=== PATIENT | female | born 1950 | race Caucasian/White ===

== ENCOUNTER 2016-11-24 10:53 | Observation (INO) | payer BC, OTHER ==
[2016-11-24 10:53] VITALS: BMI 32.1
--- NOTE | 2016-11-24 12:09 | RAD ---
HISTORY: CP COMPARISON: Images from chest x-ray performed 07/08/08 TECHNIQUE: Chest PA and lateral FINDINGS: LUNGS: No focal consolidation. Please note that chest x-ray has limited sensitivity for the detection of pulmonary masses. PLEURA: No significant pleural effusion identified. No definite pneumothorax . CARDIOVASCULAR: Heart size appears within normal limits. OSSEOUS STRUCTURES: Degenerative changes of the spine. VISUALIZED UPPER ABDOMEN: Elevation of the right hemidiaphragm. OTHER FINDINGS: None. IMPRESSION: No active disease.
[2016-11-24 12:38] LABS: BASO % 0.6 % (0.0-2.0); EOS # 0.1 K/uL (0.0-0.7); HEMATOCRIT 38.7 % (34.0-47.0); LYMPH # 1.3 K/uL (1.0-4.3); LYMPH % 21.5 % (20.0-40.0); MEAN CELL VOLUME 83.8 fl (81.0-99.0); MEAN CORPUSCULAR HEMOGLOBIN 27.9 pg (27.0-31.0); MEAN CORPUSCULAR HGB CONC 33.2 g/dL (33.0-37.0); MEAN PLATELET VOLUME 9.5 fl (7.2-11.7); MONO # 0.6 K/uL (0.0-0.8); MONO % 10.2 % (0.0-10.0); NEUT % 65.7 % (50.0-75.0); NRBC % 0.1 % (0.0-0.0); RED CELL DISTRIBUTION WIDTH 13.7 % (11.5-14.5); WHITE BLOOD COUNT 6.1 K/uL (4.8-10.8)
[2016-11-24 12:56] LABS: ALB/GLOB RATIO 1.3 (1.0-2.1); ALKALINE PHOSPHATASE 62 U/L (38-126); ALT/SGPT 27 U/L (9-52); AST/SGOT 24 U/L (14-36); BILIRUBIN,TOTAL 0.8 mg/dl (0.2-1.3); BLOOD UREA NITROGEN 15 mg/dl (7-17); CALCIUM 9.8 mg/dL (8.4-10.2); CARBON DIOXIDE 24 mmol/L (22-30); CHLORIDE 106 mmol/L (98-107); GFR AFRICAN-AMERICAN > 60; GLUCOSE,RANDOM 92 mg/dL (65-105); POTASSIUM 4.4 MMOL/L (3.6-5.0); SODIUM 137 mmol/l (132-148); TOTAL PROTEIN 7.5 G/DL (6.3-8.2)
[2016-11-24 13:53] LABS: URINE BILIRUBIN NEGATIVE (NEGATIVE); URINE BLOOD NEGATIVE (NEGATIVE); URINE COLOR COLORLESS (YELLOW); URINE GLUCOSE (UA) NEG (Normal); URINE KETONE NEGATIVE (NEGATIVE); URINE LEUKOCYTE ESTERASE NEG Leu/uL (Negative); URINE PROTEIN NEGATIVE (NEGATIVE); URINE UROBILINOGEN 0.2-1.0 mg/dL (0.2-1.0)
--- NOTE | 2016-11-24 14:31 | ED PDOC ---
HPI: General Adult Time Seen by Provider: 11/24/16 11:45 Chief Complaint (Nursing): Chest Pain Chief Complaint (Provider): epigastric pain History Per: Patient History/Exam Limitations: no limitations Current Symptoms Are (Timing): Still Present Additional Complaint(s): 66yo female history of "colon infection" last year presents with epigastric pain radiating to chest ongoing for 2 days. No shortness of breath, fever, cough. Past Medical History Reviewed: Historical Data, Nursing Documentation, Vital Signs Vital Signs: Last Vital Signs Temp 97.7 F 11/25/16 08:18 Pulse 62 11/25/16 09:00 Resp 18 11/25/16 08:18 BP 119/73 11/25/16 08:18 Pulse Ox 96 11/25/16 08:18 - Medical History PMH: Fractures (LEFT WRIST CASTED/CHILDHOOD) Denies: Chronic Kidney Disease Other PMH: "colon infection" last year - Surgical History Surgical History: No Surg Hx - Family History Family History: States: Unknown Family Hx - Home Medications Home Medications: Ambulatory Orders Medication Instructions Recorded Acetaminophen [Tylenol] 2 tab PO PRN PRN 04/25/14 - Allergies Allergies/Adverse Reactions: Allergies Allergy/AdvReac Type Severity Reaction Status Date / Time No Known Allergies Allergy Verified 11/24/16 11:31 Review of Systems ROS Statement: Except As Marked, All Systems Reviewed And Found Negative Constitutional: Negative for: Fever Cardiovascular: Positive for: Chest Pain Respiratory: Negative for: Cough, Shortness of Breath Gastrointestinal: Positive for: Abdominal Pain, Diarrhea Physical Exam - Reviewed Nursing Documentation Reviewed: Yes Vital Signs Reviewed: Yes - Physical Exam Appears: Positive for: Well, Non-toxic, No Acute Distress Head Exam: Positive for: ATRAUMATIC, NORMAL INSPECTION, NORMOCEPHALIC Skin: Positive for: Warm, Dry Eye Exam: Positive for: EOMI, PERRL Cardiovascular/Chest: Positive for: Regular Rate, Rhythm Respiratory: Positive for: Normal Breath Sounds. Negative for: Rales, Rhonchi, Wheezing Gastrointestinal/Abdominal: Positive for: Normal Exam, Soft. Negative for: Tenderness Extremity: Positive for: Normal ROM - Laboratory Results Result Diagrams: 11/24/16 12:30 11/24/16 12:30 - ECG ECG: Positive for: Interpreted By Me, Viewed By Me ECG Rhythm: Positive for: Sinus Rhythm. Negative for: ST/T Changes O2 Sat by Pulse Oximetry: 99 (RA) Pulse Ox Interpretation: Normal - Radiology X-Ray: Interpreted by Me, Viewed By Me X-Ray Interpretation: No Acute Disease Medical Decision Making Medical Decision Makin EKG, CXR, labs, aspirin ordered. 1440 Patient was given nitroglycerin which resolved her pain. Therefore will keep for TELE-OBS for workup for ACS. Nitro given and resolved symptoms. No hx dynamic testing. Admit Dr Diaz for chest pain w cardio consult. Disposition - Clinical Impression Clinical Impression: Chest pain - Patient ED Disposition Is Patient to be Admitted: Yes Counseled Patient/Family Regarding: Studies Performed, Diagnosis - Disposition Disposition Time: 14:40 Condition: STABLE - Pt Status Changed To: Hospital Disposition Of: Observation - POA Present On Arrival: None Additional Comments - Additional Comments Additional Comments: Scribe Attestation: Documented by Osiel Perez acting as a scribe for Carlos Chapman DO. Provider Scribe Attestation: All medical record entries made by the Scribe were at my direction and personally dictated by me. I have reviewed the chart and agree that the record accurately reflects my personal performance of the history, physical exam, medical decision making, and the department course for this patient. I have also personally directed, reviewed, and agree with the discharge instructions and disposition.
[2016-11-24] MEDS ORDERED: Pneumococcal 23-Valent Vaccine IM ONE (18:00)
[2016-11-24] MEDS ORDERED: Influenza Vaccine(5yr & older) 0.5 ML/45 MCG IM ONE (18:00)
[2016-11-24 20:04] VITALS: RESP 18
[2016-11-24 21:39] LABS: PARTIAL THROMBOPLASTIN TIME 26.4 SECONDS (23.3-32.5)
[2016-11-24 21:45] LABS: AMYLASE 45 U/L (30-110); LIPASE 73 U/L (23-300)
--- NOTE | 2016-11-25 02:12 | CON ---
DATE: 11/24/2016 REASON FOR CONSULTATION: Chest pain. HISTORY OF PRESENT ILLNESS: The patient is a 66-year-old female who has no known prior card iac history, presented because of epigastric pain for the past 2 days. The patient denies any retros ternal chest pain, diaphoresis or shortness of breath. The patient denies any history of fever, chil ls, or productive cough. SOCIAL HISTORY: The patient is a nonsmoker, nondrinker. PAST MEDICAL HISTORY: The patient has a history of colon infection. She underwent colonoscopy orion newell. MEDICATIONS: Aspirin 81 mg once a day, Lovenox 40 mg subcutaneous once a day, Pepcid 20 mg p.o. once a day. The patient at home is only on Tylenol p.r.n. PHYSICAL EXAMINATION: GENERAL: The patient is a middle-aged female who does not appear to be in any distress. VITAL SIGNS: Blood pressure 112/66, heart rate 51, temperature 98.3, respirations 18. HEENT: Normocephalic. NECK: No JVD. CHEST: Clear. HEART: S1, S2 regular. ABDOMEN: Soft. EXTREMITIES: No edema. EKG revealed normal sinus rhythm at a rate of 64. LABORATORY DATA: CBC: WBC 6.1, hemoglobin 12.9, hematocrit 38.7, platelet count 253,000. SMA-7: S odium 137, potassium 4.4, chloride 106, CO2 24, glucose 92, BUN 15, creatinine 0.6. One set of tropo nins is negative. Chest x-ray was unremarkable. ASSESSMENT: 1. Atypical chest pain, rule out myocardial infarction. 2. Rule out gastritis or duodenitis. 3. Recent depression after the patient lost her parents late last year. RECOMMENDATIONS: Continue current aspirin 81 mg once a day, subcutaneous Lovenox at 40 mg once a day , Pepcid 20 mg orally once a day. Obtain serum amylase and lipase levels. Obtain one more set of tr oponins and obtain PT, PTT and schedule the patient for an echocardiogram. Toan Samaniego MD cc: [id number] TT: 11/25/2016 02:12:13 Confirmation # [id number] Dictation # [id number] mn
--- NOTE | 2016-11-25 07:21 | CARD ---
APPROVED REPORT EKG Measurement Heart [id number] <Conclusion> Normal sinus rhythm Normal ECG
[2016-11-25 08:18] VITALS: BP 119/73; PULSE 62; TEMP 97.7
[2016-11-25] MEDS ORDERED: Enoxaparin 40 mg Syringe SC SCH (09:00)
--- NOTE | 2016-11-25 13:17 | PN ---
DATE: 11/25/2016 The patient denies chest pain or shortness of breath. PHYSICAL EXAMINATION: VITAL SIGNS: Blood pressure 119/73, heart rate 62, temperature 97.7, respirations 18. HEENT: Normocephalic. NECK: No JVD. CHEST: Clear. HEART: S1, S2 regular. EXTREMITIES: No edema. LABORATORIES: Total of 4 troponins are negative. Amylase and lipase are within normal limits. I di d review the echocardiography study which revealed normal left ventricular systolic function. ASSESSMENT: 1. Atypical chest pain, myocardial infarction is ruled out. 2. History of depression following the loss of the patient's parents late last year. RECOMMENDATIONS: Continue current aspirin 81 mg once a day. No further cardiac workup is indicated. The patient did report that she has ____ jury duty and wanted to be excused from jury duty if possi ble. Toan Samaniego MD cc: [id number] TT: 11/25/2016 13:16:46 Confirmation # [id number] Dictation # [id number] tn
--- NOTE | 2016-11-25 14:04 | CARD ---
APPROVED REPORT EXAM: Two-dimensional and M-mode echocardiogram with Doppler and color Doppler. Other Information Quality : GoodRhythm : NSR INDICATION Chest Pain 2D DIMENSIONS IVSd0.84 (0.7-1.1cm)LVDd3.84 (3.9-5.9cm) LVOT Diameter2.28 (1.8-2.4cm)PWd0.82 (0.7-1.1cm) IVSs1.27 (0.8-1.2cm)LVDs2.16 (2.5-4.0cm) FS (%) 43.7 %PWs1.10 (0.8-1.2cm) M-Mode DIMENSIONS Left Atrium (MM)4.49 (2.5-4.0cm)IVSd1.19 (0.7-1.1cm) Aortic Root3.25 (2.2-3.7cm)LVDd4.69 (4.0-5.6cm) Aortic Cusp Exc.2.23 (1.5-2.0cm)PWd0.91 (0.7-1.1cm) IVSs1.63 cmFS (%) 52 % LVDs2.26 (2.0-3.8cm)PWs1.19 cm Mitral Valve MV E Pyznknnr32.5cm/sMV DECEL [id number] A Hdmbmejr58.2cm/s MV DDM01dkR/A ratio1.3MVA (PHT)3.94cm2 TDI Lateral E' Peak V8.23cm/sMedial E' Peak V7.17cm/sE/Lateral E'9.2 E/Medial E'10.5 Pulmonary Valve PV Peak Ejuoregz305.3cm/s LEFT VENTRICLE The left ventricle is normal size. There is normal left ventricular wall thickness. Left ventricle systolic function is normal. The Ejection Fraction is 65-70%. There is normal LV segmental wall motion. Transmitral Doppler flow pattern is Grade I-abnormal relaxation pattern. RIGHT VENTRICLE The right ventricle is normal size. There is normal right ventricular wall thickness. The right ventricular systolic function is normal. ATRIA The left atrium size is normal. The right atrium size is normal. AORTIC VALVE The aortic valve is normal in structure and function. No aortic regurgitation is present. There is no aortic valvular stenosis. MITRAL VALVE The mitral valve is normal in structure and function. There is no evidence of mitral valve prolapse. There is no mitral valve stenosis. There is no mitral valve regurgitation noted. TRICUSPID VALVE The tricuspid valve is normal in structure and function. There is no tricuspid valve regurgitation noted. PULMONIC VALVE The pulmonary valve is normal in structure and function. There is trace to mild pulmonic valvular regurgitation. GREAT VESSELS The aortic root is normal in size. The IVC is normal in size and collapses >50% with inspiration. PERICARDIAL EFFUSION The pericardium appears normal. <Conclusion> The left ventricle is normal size. There is normal left ventricular wall thickness. There is normal LV segmental wall motion. Left ventricle systolic function is normal. The Ejection Fraction is 65-70%. Transmitral Doppler flow pattern is Grade I-abnormal relaxation pattern.
[2016-11-25 16:32] VITALS: O2SAT 99
--- NOTE | 2016-11-25 19:10 | HP ---
CHIEF COMPLAINT: Chest pain. HISTORY OF PRESENT ILLNESS: This is a 66-year-old female, with known case of colon infection and ___ __ chronic medical problem who was having chest pain, so the patient was brought to the [facility] and was admitted for further management. The patient is undergoing a lot of stress recently had mu ltiple deaths in the family and was feeling very stressed about it. The patient also got more stress when she was chosen for Jury Duty. REVIEW OF SYSTEMS: Is positive for chest and epigastric discomfort. Review of systems otherwise is negative for headache, dizziness, syncope, loss of consciousness, shortness of breath, nausea, vomiti ng, diarrhea, constipation, any new joint or extremity pain. Review of systems of all other organ sy stems is unremarkable. PAST SURGICAL HISTORY: Unremarkable. PERSONAL HISTORY: The patient is a nonsmoker, nondrinker, no substance abuse. MEDICATIONS: The patient is not on any medication other than aspirin. ALLERGIES: The patient is not allergic to any medication. FAMILY HISTORY: Noncontributory. PHYSICAL EXAMINATION: GENERAL: Well-built, well-nourished 66-year-old female in no acute distress. VITAL SIGNS: Temperature afebrile, pulse 88, respiration 18, blood pressure 140/80. HEENT: Pupils reacting to light. Normocephalic, atraumatic skull. NECK: No JVD, no thyromegaly, no lymphadenopathy, no nystagmus. HEART: S1, S2 normal, regular. No significant murmur, gallop or rub is heard. LUNGS: Shows good bilateral air entry. No rales or rhonchi. ABDOMEN: Soft, nontender, no organomegaly, , bowel sounds are plus. EXTREMITIES: No edema, no calf swelling, no tenderness, no acute ischemia. CENTRAL NERVOUS SYSTEM: The patient is alert, awake, oriented x 3. There is no sign of any acute gr oss focal motor or sensory neurological deficit. DIAGNOSTIC DATA: Available diagnostic data reviewed. Telemetry monitoring does not show significant arrhythmia. Chest x-ray is clear. EKG does not reveal any acute ST-T changes. Echocardiogram is u nremarkable. Cardiology consult noted and appreciated. Diagnostic data also includes blood tests. Troponin 3 sets are negative. WBC 6.1, hemoglobin 12.9, hematocrit 38.7, platelets 253. Sodium 137, potassium 4.4, chloride 106, bicarbonate 24, BUN 15, creatinine 0.6. SMA-12 is unremarkable. Urina lysis is negative. ADMITTING IMPRESSION: Atypical chest pain, rule out acute coronary syndrome. PLAN: As ordered. The case and plan was discussed with the patient. Telemetry monitoring does not reveal any significant arrhythmia. Jayjay Diaz MD cc: [id number] TT: 11/25/2016 19:09:56 dn
== END 2016-11-25 13:15 | disposition home or self-care (01) ==
LOC: H.ER 10:53 → H.ERHOLD 14:50 → INTOOBSV 14:50 → H.TEL 16:03
PROVIDERS: ADMIT Internal Medicine; ATTEND Internal Medicine
DX: R07.89 Other chest pain (principal); Z23 Encounter for immunization
CPT/HCPCS: 36415; 71020; 80053; 81003; 82150; 83690; 84484; 85025; 85610; 85730; 90732; 93005; 93306; 99285; G0008; G0009; G0378; J1650; Q2035

== ENCOUNTER 2018-05-18 09:35 | Emergency (ER) | payer BC, MEDICARE ==
[2018-05-18 09:36] VITALS: BMI 32.1
[2018-05-18 11:14] LABS: BASO # 0.1 K/uL (0.0-0.2); BASO % 0.8 % (0.0-2.0); EOS # 0.2 K/uL (0.0-0.7); HEMOGLOBIN 13.4 g/dL (12.0-16.0); LYMPH # 1.4 K/uL (1.0-4.3); LYMPH % 20.4 % (20.0-40.0); MEAN CELL VOLUME 82.5 fl (81.0-99.0); MEAN CORPUSCULAR HEMOGLOBIN 27.9 pg (27.0-31.0); MEAN CORPUSCULAR HGB CONC 33.8 g/dL (33.0-37.0); MEAN PLATELET VOLUME 9.6 fl (7.2-11.7); MONO # 0.7 K/uL (0.0-0.8); MONO % 9.8 % (0.0-10.0); NEUT # 4.5 K/uL (1.8-7.0); NRBC % 0.1 % (0.0-0.0); RBC 4.8 Mil/uL (3.80-5.20); RED CELL DISTRIBUTION WIDTH 13.9 % (11.5-14.5); WHITE BLOOD COUNT 6.8 K/uL (4.8-10.8)
--- NOTE | 2018-05-18 11:21 | ED PDOC ---
Lower Extremity Pain/Injury Time Seen by Provider: 05/18/18 10:15 Chief Complaint (Provider): Lower Extremity Problem History Per: Patient History/Exam Limitations: no limitations Onset/Duration Of Symptoms: Days Additional Complaint(s): 67 years old female presents to the ED complaining of worsening leg swelling and pain for several days. Patient reports multiple episodes of waking up with left leg cramping and pain behind left knee and left calf. She states she has not seen a doctor in numerous years but believes she has no medical problems. Patient denies any shortness of breath, fever, nausea, vomiting, weakness or trauma. PMD: non provided Past Medical History Reviewed: Historical Data, Nursing Documentation, Vital Signs - Medical History PMH: Fractures (LEFT WRIST CASTED/CHILDHOOD) Denies: HIV, Chronic Kidney Disease - Surgical History Surgical History: No Surg Hx - Family History Family History: States: Unknown Family Hx - Social History Current smoker - smoking cessation education provided: No Alcohol: None Drugs: Denies - Home Medications Home Medications: Ambulatory Orders Medication Instructions Recorded Acetaminophen [Tylenol] 2 tab PO PRN PRN 04/25/14 - Allergies Allergies/Adverse Reactions: Allergies Allergy/AdvReac Type Severity Reaction Status Date / Time No Known Allergies Allergy Verified 11/24/16 11:31 Review of Systems ROS Statement: Except As Marked, All Systems Reviewed And Found Negative Constitutional: Negative for: Fever Gastrointestinal: Negative for: Nausea, Vomiting Musculoskeletal: Positive for: Leg Pain (and swelling of left leg) Neurological: Negative for: Weakness Physical Exam - Reviewed Nursing Documentation Reviewed: Yes Vital Signs Reviewed: Yes - Physical Exam Appears: Positive for: Non-toxic, No Acute Distress Head Exam: Positive for: ATRAUMATIC, NORMOCEPHALIC Skin: Positive for: Normal Color, Warm, Dry. Negative for: Rash (or change in skin color) Neck: Positive for: Normal, Painless ROM, Supple Cardiovascular/Chest: Positive for: Regular Rate, Rhythm. Negative for: Murmur Respiratory: Positive for: Normal Breath Sounds. Negative for: Respiratory Distress Gastrointestinal/Abdominal: Positive for: Normal Exam, Soft. Negative for: Tenderness Extremity: Positive for: Normal ROM (of hip, knee and ankle with no pain), Tenderness (on palpation to popliteal-fossa. No tenderness on palpation of joint ), Other (Left leg larger in appearance than right leg diffusely). Negative for : Swelling Neurologic/Psych: Positive for: Alert, Oriented (x3) - Laboratory Results Result Diagrams: 05/18/18 10:45 05/18/18 10:45 Medical Decision Making Medical Decision Making: Time: 1032 A/P: Rule out DVT --Labs --Chest X-Ray --EKG --Left Lower Extremity Venous US --Reassess patient --No acute distress at this time with normal vitals 1141 Extremity US FINDINGS: 2-D, color and duplex Doppler analysis of the lower extremity venous circulation using routine protocol from the common and superficial femoral veins through the popliteal veins. Venous compressibility: Normal. Flow and augmentation patterns: Normal. Normal phasic blood flow is identified throughout all interrogated veins as well. Posterior tibial venous blood flow is identified indicating patency. Galvez cyst: None. IMPRESSION: No sonographic or Doppler evidence for DVT in left lower extremity. 1243 Chest X-Ray FINDINGS: Apical lordotic technique. LUNGS: No active pulmonary disease. PLEURA: No significant pleural effusion identified, no pneumothorax apparent. CARDIOVASCULAR: Normal. OSSEOUS STRUCTURES: No significant abnormalities. VISUALIZED UPPER ABDOMEN: Normal. OTHER FINDINGS: None. IMPRESSION: No interval acute cardiopulmonary disease appreciated. 1317 Upon provider reevaluation patient is feeling better, is medically stable, and requires no further treatment in the ED at this time. Counseling was provided and all questions were answered regarding diagnosis. ----- Scribe Attestation: Documented by Jazmyn Vallejo, acting as a scribe for Bibi Young MD. Provider Scribe Attestation: All medical record entries made by the Scribe were at my direction and personally dictated by me. I have reviewed the chart and agree that the record accurately reflects my personal performance of the history, physical exam, medical decision making, and the department course for this patient. I have also personally directed, reviewed, and agree with the discharge instructions and disposition. Disposition - Clinical Impression Clinical Impression: Leg pain, left, Musculoskeletal pain - Disposition Referrals: [facility] [place] [Outside] Disposition: Routine/Home Disposition Time: 13:17 Condition: IMPROVED Additional Instructions: Take Motrin or Tylenol for pain. Today your workup shows normal cardiac (heart ) enzymes, renal function, and EKG. There are no signs of DVT on Ultrasound or blood work. Return to the emergency department if you develop chest pain, trouble breathing, fever, or other new symptoms. Follow up with a primary medical doctor of your choice for further workup of the leg pain and swelling. Forms: [facility] [employer] (Albanian) Print Language: TRINIDADIAN
[2018-05-18 11:28] LABS: BLOOD UREA NITROGEN 18 mg/dl (7-17); GFR NON-AFRICAN AMERICAN > 60
[2018-05-18 11:33] LABS: PROTHROMBIN TIME 11.2 Seconds (9.8-13.1)
[2018-05-18 11:36] LABS: PARTIAL THROMBOPLASTIN TIME 31.9 Seconds (25.6-37.1)
[2018-05-18 11:39] LABS: B-TYPE NATRIURETIC PEPTIDE 66.7 pg/ml (0-900)
--- NOTE | 2018-05-18 11:42 | US ---
Date of service: 05/18/2018 HISTORY: left leg swelling . PRIORS: None. FINDINGS: 2-D, color and duplex Doppler analysis of the lower extremity venous circulation using routine protocol from the common and superficial femoral veins through the popliteal veins. Venous compressibility: Normal. Flow and augmentation patterns: Normal. Normal phasic blood flow is identified throughout all interrogated veins as well. Posterior tibial venous blood flow is identified indicating patency. Galvez cyst: None. IMPRESSION: No sonographic or Doppler evidence for DVT in left lower extremity.
[2018-05-18 11:46] LABS: D DIMER < 200 ng/mlDDU (0-230)
--- NOTE | 2018-05-18 12:44 | RAD ---
Date of service: 05/18/2018 HISTORY: possible admission COMPARISON: Chest radiographs 11/24/2016. FINDINGS: Apical lordotic technique. LUNGS: No active pulmonary disease. PLEURA: No significant pleural effusion identified, no pneumothorax apparent. CARDIOVASCULAR: Normal. OSSEOUS STRUCTURES: No significant abnormalities. VISUALIZED UPPER ABDOMEN: Normal. OTHER FINDINGS: None. IMPRESSION: No interval acute cardiopulmonary disease appreciated.
[2018-05-18 13:57] VITALS: BP 129/83; PULSE 74; RESP 16; TEMP 98.2; O2SAT 100
--- NOTE | 2018-05-18 19:11 | CARD ---
APPROVED REPORT Date of service: 05/18/2018 <Conclusion> Normal sinus rhythm Normal ECG
== END 2018-05-18 14:02 | disposition home or self-care (01) ==
LOC: H.ER 09:35
DX: M79.605 Pain in left leg (principal); R60.0 Localized edema